=== PATIENT | female | born 1990 | race American Indian/Alaskan Native ===

== ENCOUNTER 2020-10-19 12:12 | Emergency (ER) | payer BC ==
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
== END 2020-10-19 14:10 | disposition home or self-care (01) ==
LOC: ED 12:12
CPT/HCPCS: 99282